=== PATIENT | male | born 2000 | race Caucasian/White ===

== ENCOUNTER 2018-06-24 18:14 | Emergency (ER) | payer SELFPAY ==
[~2018-06-24] VITALS: Ht 154.9 cm; Wt 63.5 kg
[2018-06-24 18:14] VITALS: BP 143/68
--- NOTE | 2018-06-24 21:01 | NUR ---
INFORMED BY ADMITTING OSCAR "PT LEFT 2 HOURS AGO"
== END 2018-06-24 19:03 | disposition left against medical advice (07) ==
LOC: ER 18:16
DX: Z53.21 Procedure and treatment not carried out due to patient leaving prior to being seen by health care provider (principal); F12.10 Cannabis abuse, uncomplicated
CPT/HCPCS: A4606; Z7610

== ENCOUNTER 2020-03-07 18:48 | Emergency (ER) | payer MEDICAID ==
[~2020-03-07] VITALS: Ht 165.1 cm; Wt 73.0 kg
[2020-03-07 18:59] VITALS: BP 133/97
== END 2020-03-07 19:10 | disposition home or self-care (01) ==
LOC: ER 18:51
DX: H10.89 Other conjunctivitis (principal)

== ENCOUNTER → 2020-03-12 | Emergency (ER) | payer MEDICAID ==
[~2020-03-12] VITALS: Ht 167.6 cm; Wt 72.6 kg
[2020-03-12 16:58] VITALS: BP 137/92
== END | disposition home or self-care (01) ==
LOC: ER 15:50
DX: B99.9 Unspecified infectious disease (principal); H10.89 Other conjunctivitis